=== PATIENT | female | born 1955 | race Caucasian/White ===

== ENCOUNTER 2020-11-18 09:08 | Inpatient (IN) | payer OTHER ==
[~2020-11-18] VITALS: Ht 160 cm; Wt 79.6 kg
[2020-11-18] MEDS: lisinopriL 40 MG TAB PO SCH (09:00)
[2020-11-18 10:54] LABS: BASO % 0.3 % (0.0-1.0); EOS % 0.2 % (0.0-3.0); HEMATOCRIT 40.4 % (36.0-47.0); HEMOGLOBIN 13.7 g/dl (12.0-15.5); LYMPH % 6.1 % (24.0-44.0); MEAN CORPUSCULAR HEMOGLOBIN 32.9 pg (27.0-33.0); MEAN CORPUSCULAR HGB CONC 33.9 g/dl (32.0-36.5); MEAN CORPUSCULAR VOLUME 97.1 fl (80.0-96.0); MONO # 0.7 10^3/uL (0.0-0.8); MONO % 4.3 % (2.0-8.0); NEUTROPHILS # 13.7 10^3/uL (1.5-8.5); NEUTROPHILS % 88.4 % (36.0-66.0); PLATELET COUNT, AUTOMATED 282 10^3/uL (150-450); RED BLOOD COUNT 4.16 10^6/uL (4.00-5.40); WHITE BLOOD COUNT 15.5 10^3/uL (4.0-10.0)
[2020-11-18] MEDS ORDERED: ACET1TAB16 PO (11:03)
[2020-11-18] MEDS ORDERED: ACETAMINOPH W/CODEINE #3 TAB UD PO ONE (11:10)
[2020-11-18 11:24] LABS: ALBUMIN 2.3 GM/DL (3.2-5.2); ALT/SGPT 43 U/L (12-78); BILIRUBIN,TOTAL 0.2 MG/DL (0.2-1.0); BLOOD UREA NITROGEN 74 MG/DL (7-18); CALCIUM LEVEL 8.8 MG/DL (8.8-10.2); CARBON DIOXIDE LEVEL 20 MEQ/L (21-32); CHLORIDE LEVEL 108 MEQ/L (98-107); CK-MB VALUE MASS 12.1 NG/ML (<3.6); CPK CREATINE PHOSPHOKINASE 302 U/L (26-192); CREATININE FOR GFR 1.74 MG/DL (0.55-1.30); GLOMERULAR FILTRATION RATE 31.2 (>45); GLUCOSE, FASTING 106 MG/DL (70-100); MB/CK RELATIVE INDEX 4.01 (< OR =4); POTASSIUM SERUM 4.8 MEQ/L (3.5-5.1); SODIUM LEVEL 138 MEQ/L (136-145); TOTAL PROTEIN 6.6 GM/DL (6.4-8.2); TROPONIN I < 0.02 NG/ML (< 0.10)
[2020-11-18] MEDS ORDERED: NS 1,000 ML IV SCH (12:10)
[2020-11-18] MEDS ORDERED: MAALOX 30 ML SUSP *UDC PO PRN (12:40)
[2020-11-18] MEDS ORDERED: MOM 30ML SUSPENSION UDC PO PRN (12:40)
[2020-11-18 13:03] LABS: RSV AMPLIFICATION NEGATIVE (NEGATIVE)
[2020-11-18] MEDS: NS 1,000 ML IV SCH ×2 (13:13→21:34)
[2020-11-18] MEDS ORDERED: EPIP0.3I2 IM (14:01)
[2020-11-18] MEDS ORDERED: BACL1TAB9 PO (14:01)
[2020-11-18] MEDS ORDERED: CARB1TAB20 PO (14:01)
[2020-11-18] MEDS ORDERED: PRAM1TAB7 PO (14:01)
[2020-11-18] MEDS ORDERED: ROSU20TA5 PO (14:01)
[2020-11-18] MEDS ORDERED: PRAM0.754 PO (14:01)
[2020-11-18] MEDS ORDERED: FAMO20TA PO (14:01)
[2020-11-18] MEDS ORDERED: D31000TA2 PO (14:01)
[2020-11-18] MEDS ORDERED: VALA1TAB5 PO (14:01)
[2020-11-18] MEDS ORDERED: LISI40TA4 PO (14:01)
[2020-11-18] MEDS ORDERED: GABA-282 PO (14:01)
[2020-11-18] MEDS ORDERED: CIPR750T2 PO (14:01)
[2020-11-18] MEDS ORDERED: ASPI-161 PO (14:01)
[2020-11-18] MEDS ORDERED: DICL75TA PO (14:01)
[2020-11-18] MEDS ORDERED: LEXA1TAB2 PO (14:01)
[2020-11-18] MEDS ORDERED: HOME MED LIST COMPLETE! XX SCH (14:05)
[2020-11-18] MEDS ORDERED: ACETAMINOPH W/CODEINE #3 TAB UD PO PRN (15:15)
[2020-11-18] MEDS ORDERED: **SFRHE** EPINEPHrine (EPIPEN) 0.3MG/0.3ML SYRINGE INJ PRN (15:15)
[2020-11-18] MEDS ORDERED: PILL CUTTER 1 EACH XX PRN (16:10)
[2020-11-18] MEDS: BACLOFEN 10 MG TAB PO SCH ×2 (16:26→21:34)
[2020-11-18] MEDS: ACETAMINOPHEN TAB 650MG DOSE (2X325MG) PO PRN (16:27)
[2020-11-18] MEDS ORDERED: GABAPENTIN 300 MG CAP PO ONE (17:35)
[2020-11-18 18:01] LABS: MAGNESIUM LEVEL 2.3 MG/DL (1.8-2.4); URIC ACID 7.5 MG/DL (2.6-6.0)
[2020-11-18 18:02] LABS: INR 1.09; PROTHROMBIN TIME 14.5 SECONDS (12.7-14.5)
[2020-11-18] MEDS: PERCOCET 5MG/325MG TAB PO PRN (18:02)
[2020-11-18 18:03] LABS: PARTIAL THROMBOPLASTIN TIME 21.9 SECONDS (25.9-37.0)
[2020-11-18 18:15] VITALS: BP 103/40
[2020-11-18] MEDS: FAMOTIDINE 20 MG TAB PO SCH (19:12)
[2020-11-18] MEDS: ESCITALOPRAM OXALATE 10 MG TAB (LEXAPRO) PO SCH (19:12)
[2020-11-18] MEDS: valACYclovir HCL 500 MG TAB PO SCH (19:12)
[2020-11-18 21:05] VITALS: BP 101/56
[2020-11-18] MEDS: GABAPENTIN 300 MG CAP PO SCH (21:32)
[2020-11-18] MEDS: PRAMIPEXOLE 1 MG TAB PO SCH (21:33)
[2020-11-18] MEDS: VITAMIN D 1,000 INTERNATIONAL UNITS TABLET PO SCH (21:33)
[2020-11-18] MEDS: carBAMazepine 200MG TABLET PO SCH (21:33)
[2020-11-18] MEDS: ROSUVASTATIN 10 MG TAB (CRESTOR) PO SCH (21:33)
[2020-11-19] VITALS (35 sets, daily range): BP systolic 60–165; BP diastolic 30–85
[2020-11-19] MEDS: NS 1,000 ML IV SCH (05:40)
[2020-11-19] MEDS ORDERED: NS 500 ML IV ONE (06:05)
[2020-11-19] MEDS: ACETAMINOPHEN TAB 650MG DOSE (2X325MG) PO PRN ×2 (06:08→12:36)
[2020-11-19] MEDS: PERCOCET 5MG/325MG TAB PO PRN (06:09)
[2020-11-19 07:26] LABS: HEMATOCRIT 33.7 % (36.0-47.0); MEAN CORPUSCULAR HEMOGLOBIN 32.9 pg (27.0-33.0); MEAN CORPUSCULAR HGB CONC 33.8 g/dl (32.0-36.5); MEAN CORPUSCULAR VOLUME 97.1 fl (80.0-96.0); PLATELET COUNT, AUTOMATED 229 10^3/uL (150-450); RED BLOOD COUNT 3.47 10^6/uL (4.00-5.40); WHITE BLOOD COUNT 12.1 10^3/uL (4.0-10.0)
[2020-11-19 07:46] LABS: HEMOGLOBIN 11.4 g/dl (12.0-15.5)
[2020-11-19 07:51] LABS: CALCIUM LEVEL 7.8 MG/DL (8.8-10.2); CREATININE FOR GFR 1.13 MG/DL (0.55-1.30); GLOMERULAR FILTRATION RATE 51.3 (>45); MAGNESIUM LEVEL 2.3 MG/DL (1.8-2.4); POTASSIUM SERUM 4.4 MEQ/L (3.5-5.1)
[2020-11-19] MEDS: lisinopriL 40 MG TAB PO SCH (09:00)
[2020-11-19] MEDS: ESCITALOPRAM OXALATE 10 MG TAB (LEXAPRO) PO SCH (09:39)
[2020-11-19] MEDS: ASPIRIN 81MG ENTERIC TABLET PO SCH (09:39)
[2020-11-19] MEDS: PRAMIPEXOLE 1 MG TAB PO SCH ×2 (09:40→21:39)
[2020-11-19] MEDS: GABAPENTIN 300 MG CAP PO SCH ×2 (09:40→21:39)
[2020-11-19] MEDS: BACLOFEN 10 MG TAB PO SCH ×3 (09:40→18:07)
[2020-11-19] MEDS: FAMOTIDINE 20 MG TAB PO SCH (09:40)
[2020-11-19] MEDS: VITAMIN D 1,000 INTERNATIONAL UNITS TABLET PO SCH ×2 (09:41→21:38)
[2020-11-19] MEDS: valACYclovir HCL 500 MG TAB PO SCH (09:41)
[2020-11-19] MEDS: carBAMazepine 200MG TABLET PO SCH ×2 (09:41→21:38)
[2020-11-19] MEDS: ENOXAPARIN 30MG/0.3ML SYRINGE (J1650 PER 10MG) SC SCH (09:41)
[2020-11-19] MEDS ORDERED: LR 1,000 ML IV ONE (10:15)
[2020-11-19] MEDS: PIPERACILLIN/TAZOBACTAM SOD 4.5 GM in D5W MINI-BAG PLUS 50 ML IV SCH ×3 (12:13→23:48)
[2020-11-19] MEDS: KCL 20MEQ IN 0.45NS 1000ML 1,000 ML IV SCH (12:13)
[2020-11-19] MEDS ORDERED: VANCOMYCIN HCL 1,000 MG, VIAL MATE ADAPTER 1 EACH in NS 250 ML IV ONE (14:00)
[2020-11-19 17:49] LABS: HEMATOCRIT 36.7 % (36.0-47.0); HEMOGLOBIN 12.3 g/dl (12.0-15.5); MEAN CORPUSCULAR HEMOGLOBIN 33.3 pg (27.0-33.0); MEAN CORPUSCULAR HGB CONC 33.5 g/dl (32.0-36.5); MEAN CORPUSCULAR VOLUME 99.5 fl (80.0-96.0); PLATELET COUNT, AUTOMATED 211 10^3/uL (150-450); RED BLOOD COUNT 3.69 10^6/uL (4.00-5.40); WHITE BLOOD COUNT 13.7 10^3/uL (4.0-10.0)
[2020-11-19 18:03] LABS: BLOOD UREA NITROGEN 34 MG/DL (7-18); CALCIUM LEVEL 7.9 MG/DL (8.8-10.2); CARBON DIOXIDE LEVEL 20 MEQ/L (21-32); CHLORIDE LEVEL 115 MEQ/L (98-107); CREATININE FOR GFR 0.98 MG/DL (0.55-1.30); GLOMERULAR FILTRATION RATE > 60.0 (>45); GLUCOSE, FASTING 85 MG/DL (70-100); POTASSIUM SERUM 4.3 MEQ/L (3.5-5.1); SODIUM LEVEL 143 MEQ/L (136-145)
[2020-11-19] MEDS: VANCOMYCIN HCL 1,000 MG, VIAL MATE ADAPTER 1 EACH in NS 250 ML IV SCH (20:00)
[2020-11-19] MEDS: ROSUVASTATIN 10 MG TAB (CRESTOR) PO SCH (21:39)
[2020-11-20] VITALS (35 sets, daily range): BP systolic 87–157; BP diastolic 52–86
[2020-11-20 06:12] LABS: HEMATOCRIT 35.3 % (36.0-47.0); HEMOGLOBIN 11.8 g/dl (12.0-15.5); MEAN CORPUSCULAR HEMOGLOBIN 33.1 pg (27.0-33.0); MEAN CORPUSCULAR HGB CONC 33.4 g/dl (32.0-36.5); MEAN CORPUSCULAR VOLUME 98.9 fl (80.0-96.0); PLATELET COUNT, AUTOMATED 227 10^3/uL (150-450); RED BLOOD COUNT 3.57 10^6/uL (4.00-5.40); WHITE BLOOD COUNT 13.9 10^3/uL (4.0-10.0)
[2020-11-20] MEDS: PIPERACILLIN/TAZOBACTAM SOD 4.5 GM in D5W MINI-BAG PLUS 50 ML IV SCH (06:29)
[2020-11-20] MEDS: ACETAMINOPHEN TAB 650MG DOSE (2X325MG) PO PRN ×2 (06:33→14:35)
[2020-11-20 06:40] LABS: BLOOD UREA NITROGEN 21 MG/DL (7-18); CALCIUM LEVEL 7.8 MG/DL (8.8-10.2); CARBON DIOXIDE LEVEL 25 MEQ/L (21-32); CHLORIDE LEVEL 112 MEQ/L (98-107); CREATININE FOR GFR 0.88 MG/DL (0.55-1.30); GLOMERULAR FILTRATION RATE > 60.0 (>45); GLUCOSE, FASTING 84 MG/DL (70-100); POTASSIUM SERUM 4.4 MEQ/L (3.5-5.1); SODIUM LEVEL 143 MEQ/L (136-145)
[2020-11-20] MEDS: KCL 20MEQ IN 0.45NS 1000ML 1,000 ML IV SCH (07:35)
[2020-11-20] MEDS: ESCITALOPRAM OXALATE 10 MG TAB (LEXAPRO) PO SCH (08:32)
[2020-11-20] MEDS: carBAMazepine 200MG TABLET PO SCH ×2 (08:32→22:02)
[2020-11-20] MEDS: ASPIRIN 81MG ENTERIC TABLET PO SCH (08:32)
[2020-11-20] MEDS: GABAPENTIN 300 MG CAP PO SCH ×2 (08:33→22:03)
[2020-11-20] MEDS: PRAMIPEXOLE 1 MG TAB PO SCH ×2 (08:33→22:02)
[2020-11-20] MEDS: valACYclovir HCL 500 MG TAB PO SCH (08:33)
[2020-11-20] MEDS: FAMOTIDINE 20 MG TAB PO SCH (08:34)
[2020-11-20] MEDS: VITAMIN D 1,000 INTERNATIONAL UNITS TABLET PO SCH ×2 (08:34→22:03)
[2020-11-20] MEDS: ENOXAPARIN 30MG/0.3ML SYRINGE (J1650 PER 10MG) SC SCH (08:34)
[2020-11-20] MEDS: VANCOMYCIN HCL 1,000 MG, VIAL MATE ADAPTER 1 EACH in NS 250 ML IV SCH (08:34)
[2020-11-20] MEDS ORDERED: ceFAZolin SOD 2 GM in IV 1 EA IV SCH (09:20)
[2020-11-20] MEDS: ceFAZolin SOD 1 GM in D5W MINI-BAG PLUS 50 ML IV SCH ×4 (09:52→18:13)
[2020-11-20] MEDS: LACTOBACILLUS ACIDOPHILUS CAP (BACID) PO SCH (18:56)
[2020-11-20] MEDS: PERCOCET 5MG/325MG TAB PO PRN (22:01)
[2020-11-20] MEDS: ROSUVASTATIN 10 MG TAB (CRESTOR) PO SCH (22:03)
[2020-11-20] MEDS: CEFTAROLINE FOSAMIL 600 MG in D5W MINI-BAG PLUS 50 ML IV SCH (22:14)
[2020-11-21] MEDS: PERCOCET 5MG/325MG TAB PO PRN ×2 (05:44→22:17)
[2020-11-21 05:45] LABS: HEMATOCRIT 33.3 % (36.0-47.0); HEMOGLOBIN 11.3 g/dl (12.0-15.5); MEAN CORPUSCULAR HEMOGLOBIN 32.8 pg (27.0-33.0); MEAN CORPUSCULAR HGB CONC 33.9 g/dl (32.0-36.5); MEAN CORPUSCULAR VOLUME 96.8 fl (80.0-96.0); PLATELET COUNT, AUTOMATED 207 10^3/uL (150-450); RED BLOOD COUNT 3.44 10^6/uL (4.00-5.40); WHITE BLOOD COUNT 12.3 10^3/uL (4.0-10.0)
[2020-11-21 06:00] VITALS: BP 139/82
[2020-11-21 06:15] LABS: BLOOD UREA NITROGEN 10 MG/DL (7-18); CALCIUM LEVEL 7.9 MG/DL (8.8-10.2); CARBON DIOXIDE LEVEL 25 MEQ/L (21-32); CHLORIDE LEVEL 108 MEQ/L (98-107); CREATININE FOR GFR 0.64 MG/DL (0.55-1.30); GLOMERULAR FILTRATION RATE > 60.0 (>45); GLUCOSE, FASTING 93 MG/DL (70-100); POTASSIUM SERUM 3.5 MEQ/L (3.5-5.1); SODIUM LEVEL 140 MEQ/L (136-145)
[2020-11-21] MEDS: PRAMIPEXOLE 1 MG TAB PO SCH ×2 (09:58→20:19)
[2020-11-21] MEDS: LACTOBACILLUS ACIDOPHILUS CAP (BACID) PO SCH ×3 (09:58→18:33)
[2020-11-21] MEDS: FAMOTIDINE 20 MG TAB PO SCH (09:59)
[2020-11-21] MEDS: ASPIRIN 81MG ENTERIC TABLET PO SCH (09:59)
[2020-11-21] MEDS: ESCITALOPRAM OXALATE 10 MG TAB (LEXAPRO) PO SCH (09:59)
[2020-11-21] MEDS: GABAPENTIN 300 MG CAP PO SCH ×2 (09:59→20:19)
[2020-11-21] MEDS: valACYclovir HCL 500 MG TAB PO SCH (09:59)
[2020-11-21] MEDS: VITAMIN D 1,000 INTERNATIONAL UNITS TABLET PO SCH ×2 (09:59→20:19)
[2020-11-21] MEDS: carBAMazepine 200MG TABLET PO SCH ×2 (09:59→20:20)
[2020-11-21] MEDS: ENOXAPARIN 30MG/0.3ML SYRINGE (J1650 PER 10MG) SC SCH (10:00)
[2020-11-21] MEDS: ACETAMINOPHEN TAB 650MG DOSE (2X325MG) PO PRN (10:01)
[2020-11-21] MEDS: CEFTAROLINE FOSAMIL 600 MG in D5W MINI-BAG PLUS 50 ML IV SCH ×2 (10:01→22:16)
[2020-11-21 14:00] VITALS: BP 118/58
[2020-11-21] MEDS: ROSUVASTATIN 10 MG TAB (CRESTOR) PO SCH (20:19)
[2020-11-21 22:00] VITALS: BP 142/86
[2020-11-22 06:00] VITALS: BP 119/65
[2020-11-22 06:23] LABS: HEMATOCRIT 31.5 % (36.0-47.0); HEMOGLOBIN 10.6 g/dl (12.0-15.5); MEAN CORPUSCULAR HEMOGLOBIN 32.3 pg (27.0-33.0); MEAN CORPUSCULAR HGB CONC 33.7 g/dl (32.0-36.5); PLATELET COUNT, AUTOMATED 211 10^3/uL (150-450); RED BLOOD COUNT 3.28 10^6/uL (4.00-5.40); WHITE BLOOD COUNT 9.3 10^3/uL (4.0-10.0)
[2020-11-22 06:55] LABS: BLOOD UREA NITROGEN 9 MG/DL (7-18); CALCIUM LEVEL 8.4 MG/DL (8.8-10.2); CARBON DIOXIDE LEVEL 26 MEQ/L (21-32); CHLORIDE LEVEL 107 MEQ/L (98-107); CREATININE FOR GFR 0.75 MG/DL (0.55-1.30); GLOMERULAR FILTRATION RATE > 60.0 (>45); GLUCOSE, FASTING 116 MG/DL (70-100); POTASSIUM SERUM 2.9 MEQ/L (3.5-5.1); SODIUM LEVEL 141 MEQ/L (136-145)
[2020-11-22] MEDS: ENOXAPARIN 30MG/0.3ML SYRINGE (J1650 PER 10MG) SC SCH (09:51)
[2020-11-22] MEDS: GABAPENTIN 300 MG CAP PO SCH ×2 (09:52→20:08)
[2020-11-22] MEDS: carBAMazepine 200MG TABLET PO SCH ×2 (09:52→20:08)
[2020-11-22] MEDS: PERCOCET 5MG/325MG TAB PO PRN ×2 (09:52→20:07)
[2020-11-22] MEDS: FAMOTIDINE 20 MG TAB PO SCH (09:52)
[2020-11-22] MEDS: VITAMIN D 1,000 INTERNATIONAL UNITS TABLET PO SCH ×2 (09:53→20:08)
[2020-11-22] MEDS: ESCITALOPRAM OXALATE 10 MG TAB (LEXAPRO) PO SCH (09:53)
[2020-11-22] MEDS: PRAMIPEXOLE 1 MG TAB PO SCH ×2 (09:53→20:08)
[2020-11-22] MEDS: ASPIRIN 81MG ENTERIC TABLET PO SCH (09:53)
[2020-11-22] MEDS: valACYclovir HCL 500 MG TAB PO SCH (09:53)
[2020-11-22] MEDS: LACTOBACILLUS ACIDOPHILUS CAP (BACID) PO SCH ×3 (09:55→17:04)
[2020-11-22] MEDS: CEFTAROLINE FOSAMIL 600 MG in D5W MINI-BAG PLUS 50 ML IV SCH ×2 (10:00→23:28)
[2020-11-22 12:00] VITALS: BP 109/54
[2020-11-22] MEDS ORDERED: POTASSIUM CHLORIDE 10MEQ SR TABLET PO ONE (13:25)
[2020-11-22] MEDS: ROSUVASTATIN 10 MG TAB (CRESTOR) PO SCH (20:08)
[2020-11-22] MEDS ORDERED: carisoprodoL 350 MG TAB PO ONE (21:35)
[2020-11-23] MEDS: PERCOCET 5MG/325MG TAB PO PRN ×4 (00:54→21:56)
[2020-11-23 06:00] VITALS: BP 103/53
[2020-11-23 06:19] LABS: HEMATOCRIT 30.2 % (36.0-47.0); HEMOGLOBIN 9.9 g/dl (12.0-15.5); MEAN CORPUSCULAR HEMOGLOBIN 32.1 pg (27.0-33.0); MEAN CORPUSCULAR HGB CONC 32.8 g/dl (32.0-36.5); MEAN CORPUSCULAR VOLUME 98.1 fl (80.0-96.0); PLATELET COUNT, AUTOMATED 199 10^3/uL (150-450); RED BLOOD COUNT 3.08 10^6/uL (4.00-5.40); WHITE BLOOD COUNT 8.5 10^3/uL (4.0-10.0)
[2020-11-23 06:48] LABS: BLOOD UREA NITROGEN 10 MG/DL (7-18); CARBON DIOXIDE LEVEL 28 MEQ/L (21-32); CHLORIDE LEVEL 106 MEQ/L (98-107); CREATININE FOR GFR 0.73 MG/DL (0.55-1.30); GLOMERULAR FILTRATION RATE > 60.0 (>45); GLUCOSE, FASTING 103 MG/DL (70-100); MAGNESIUM LEVEL 2.2 MG/DL (1.8-2.4); POTASSIUM SERUM 3.3 MEQ/L (3.5-5.1); SODIUM LEVEL 141 MEQ/L (136-145)
[2020-11-23] MEDS: PRAMIPEXOLE 1 MG TAB PO SCH ×2 (08:08→21:57)
[2020-11-23] MEDS: ESCITALOPRAM OXALATE 10 MG TAB (LEXAPRO) PO SCH (08:08)
[2020-11-23] MEDS: LACTOBACILLUS ACIDOPHILUS CAP (BACID) PO SCH ×3 (08:08→16:59)
[2020-11-23] MEDS: FAMOTIDINE 20 MG TAB PO SCH (08:08)
[2020-11-23] MEDS: valACYclovir HCL 500 MG TAB PO SCH (08:08)
[2020-11-23] MEDS: ASPIRIN 81MG ENTERIC TABLET PO SCH (08:08)
[2020-11-23] MEDS: GABAPENTIN 300 MG CAP PO SCH ×2 (08:08→21:57)
[2020-11-23] MEDS: VITAMIN D 1,000 INTERNATIONAL UNITS TABLET PO SCH ×2 (08:08→21:57)
[2020-11-23] MEDS: carBAMazepine 200MG TABLET PO SCH ×2 (08:09→21:57)
[2020-11-23] MEDS: POTASSIUM CHLORIDE 10MEQ SR TABLET PO SCH (08:09)
[2020-11-23] MEDS: ENOXAPARIN 30MG/0.3ML SYRINGE (J1650 PER 10MG) SC SCH (08:10)
[2020-11-23] MEDS: CEFTAROLINE FOSAMIL 600 MG in D5W MINI-BAG PLUS 50 ML IV SCH (09:50)
[2020-11-23] MEDS: LevoFLOXacin 750 MG TABLET PO SCH (13:47)
[2020-11-23 14:00] VITALS: BP 123/58
[2020-11-23] MEDS ORDERED: POTASSIUM CHLORIDE 10MEQ SR TABLET PO ONE (17:50)
[2020-11-23] MEDS: DOXYCYCLINE HYCLATE 100MG TABLET PO SCH (21:57)
[2020-11-23] MEDS: ROSUVASTATIN 10 MG TAB (CRESTOR) PO SCH (21:57)
[2020-11-23 22:00] VITALS: BP 93/39
[2020-11-24] MEDS: LevoFLOXacin 750 MG TABLET PO SCH (05:31)
[2020-11-24 05:49] LABS: HEMATOCRIT 29.8 % (36.0-47.0); HEMOGLOBIN 9.8 g/dl (12.0-15.5); MEAN CORPUSCULAR HEMOGLOBIN 32.8 pg (27.0-33.0); MEAN CORPUSCULAR HGB CONC 32.9 g/dl (32.0-36.5); MEAN CORPUSCULAR VOLUME 99.7 fl (80.0-96.0); PLATELET COUNT, AUTOMATED 202 10^3/uL (150-450); RED BLOOD COUNT 2.99 10^6/uL (4.00-5.40); WHITE BLOOD COUNT 6.3 10^3/uL (4.0-10.0)
[2020-11-24 06:00] VITALS: BP 127/56
[2020-11-24 06:27] LABS: BLOOD UREA NITROGEN 11 MG/DL (7-18); CALCIUM LEVEL 7.7 MG/DL (8.8-10.2); CARBON DIOXIDE LEVEL 26 MEQ/L (21-32); CHLORIDE LEVEL 108 MEQ/L (98-107); CREATININE FOR GFR 0.66 MG/DL (0.55-1.30); GLOMERULAR FILTRATION RATE > 60.0 (>45); GLUCOSE, FASTING 93 MG/DL (70-100); POTASSIUM SERUM 4.2 MEQ/L (3.5-5.1); SODIUM LEVEL 141 MEQ/L (136-145)
[2020-11-24] MEDS: PERCOCET 5MG/325MG TAB PO PRN ×4 (06:41→20:49)
[2020-11-24] MEDS: ENOXAPARIN 30MG/0.3ML SYRINGE (J1650 PER 10MG) SC SCH (08:38)
[2020-11-24] MEDS: LACTOBACILLUS ACIDOPHILUS CAP (BACID) PO SCH ×3 (08:39→17:32)
[2020-11-24] MEDS: carBAMazepine 200MG TABLET PO SCH ×2 (08:39→20:46)
[2020-11-24] MEDS: PRAMIPEXOLE 1 MG TAB PO SCH ×2 (08:39→20:43)
[2020-11-24] MEDS: ASPIRIN 81MG ENTERIC TABLET PO SCH (08:39)
[2020-11-24] MEDS: DOXYCYCLINE HYCLATE 100MG TABLET PO SCH ×2 (08:40→20:46)
[2020-11-24] MEDS: POTASSIUM CHLORIDE 10MEQ SR TABLET PO SCH (08:40)
[2020-11-24] MEDS: GABAPENTIN 300 MG CAP PO SCH ×2 (08:40→20:47)
[2020-11-24] MEDS: valACYclovir HCL 500 MG TAB PO SCH (08:40)
[2020-11-24] MEDS: ESCITALOPRAM OXALATE 10 MG TAB (LEXAPRO) PO SCH (08:41)
[2020-11-24] MEDS: VITAMIN D 1,000 INTERNATIONAL UNITS TABLET PO SCH ×2 (08:41→20:47)
[2020-11-24] MEDS: FAMOTIDINE 20 MG TAB PO SCH (08:41)
[2020-11-24 14:00] VITALS: BP 127/58
[2020-11-24] MEDS ORDERED: MORPHINE 2 MG/ML 1ML VIAL (J2270) IV PRN (14:40)
[2020-11-24] MEDS: ROSUVASTATIN 10 MG TAB (CRESTOR) PO SCH (20:46)
[2020-11-24 22:00] VITALS: BP 124/60
[2020-11-25] MEDS: LevoFLOXacin 750 MG TABLET PO SCH (05:49)
[2020-11-25 06:00] VITALS: BP 109/51
[2020-11-25 08:00] VITALS: BP 109/51
[2020-11-25] MEDS: ENOXAPARIN 30MG/0.3ML SYRINGE (J1650 PER 10MG) SC SCH (09:09)
[2020-11-25] MEDS: valACYclovir HCL 500 MG TAB PO SCH (09:09)
[2020-11-25] MEDS: ASPIRIN 81MG ENTERIC TABLET PO SCH (09:10)
[2020-11-25] MEDS: LACTOBACILLUS ACIDOPHILUS CAP (BACID) PO SCH ×3 (09:10→18:05)
[2020-11-25] MEDS: PRAMIPEXOLE 1 MG TAB PO SCH ×2 (09:10→21:56)
[2020-11-25] MEDS: POTASSIUM CHLORIDE 10MEQ SR TABLET PO SCH (09:11)
[2020-11-25] MEDS: DOXYCYCLINE HYCLATE 100MG TABLET PO SCH ×2 (09:11→21:21)
[2020-11-25] MEDS: carBAMazepine 200MG TABLET PO SCH ×2 (09:11→21:20)
[2020-11-25] MEDS: ESCITALOPRAM OXALATE 10 MG TAB (LEXAPRO) PO SCH (09:11)
[2020-11-25] MEDS: GABAPENTIN 300 MG CAP PO SCH ×2 (09:11→21:21)
[2020-11-25] MEDS: VITAMIN D 1,000 INTERNATIONAL UNITS TABLET PO SCH ×2 (09:12→21:21)
[2020-11-25] MEDS: FAMOTIDINE 20 MG TAB PO SCH (09:12)
[2020-11-25 09:20] LABS: BASO % 0.4 % (0.0-1.0); EOS # 0.1 10^3/uL (0.0-0.5); EOS % 1.4 % (0.0-3.0); HEMATOCRIT 32.6 % (36.0-47.0); HEMOGLOBIN 10.6 g/dl (12.0-15.5); LYMPH # 1.1 10^3/uL (1.5-5.0); LYMPH % 11.9 % (24.0-44.0); MEAN CORPUSCULAR HEMOGLOBIN 32.1 pg (27.0-33.0); MEAN CORPUSCULAR HGB CONC 32.5 g/dl (32.0-36.5); MEAN CORPUSCULAR VOLUME 98.8 fl (80.0-96.0); MONO # 0.3 10^3/uL (0.0-0.8); MONO % 3.1 % (2.0-8.0); NEUTROPHILS # 7.4 10^3/uL (1.5-8.5); NEUTROPHILS % 82.4 % (36.0-66.0); PLATELET COUNT, AUTOMATED 259 10^3/uL (150-450)
[2020-11-25] MEDS: PERCOCET 5MG/325MG TAB PO PRN ×2 (09:24→21:19)
[2020-11-25 10:00] LABS: ALBUMIN 1.6 GM/DL (3.2-5.2); ALT/SGPT 30 U/L (12-78); BILIRUBIN,TOTAL < 0.1 MG/DL (0.2-1.0); BLOOD UREA NITROGEN 21 MG/DL (7-18); CALCIUM LEVEL 8.5 MG/DL (8.8-10.2); CARBON DIOXIDE LEVEL 27 MEQ/L (21-32); CHLORIDE LEVEL 104 MEQ/L (98-107); CREATININE FOR GFR 0.75 MG/DL (0.55-1.30); GLOMERULAR FILTRATION RATE > 60.0 (>45); GLUCOSE, FASTING 133 MG/DL (70-100); MAGNESIUM LEVEL 2.2 MG/DL (1.8-2.4); POTASSIUM SERUM 4.1 MEQ/L (3.5-5.1); SODIUM LEVEL 140 MEQ/L (136-145)
[2020-11-25 14:00] VITALS: BP 108/53
[2020-11-25] MEDS: ROSUVASTATIN 10 MG TAB (CRESTOR) PO SCH (21:20)
[2020-11-26] MEDS: LevoFLOXacin 750 MG TABLET PO SCH (05:30)
[2020-11-26 06:00] VITALS: BP 120/56
[2020-11-26 06:31] LABS: HEMATOCRIT 32.4 % (36.0-47.0); HEMOGLOBIN 10.6 g/dl (12.0-15.5); MEAN CORPUSCULAR HEMOGLOBIN 32.6 pg (27.0-33.0); MEAN CORPUSCULAR HGB CONC 32.7 g/dl (32.0-36.5); MEAN CORPUSCULAR VOLUME 99.7 fl (80.0-96.0); PLATELET COUNT, AUTOMATED 259 10^3/uL (150-450); RED BLOOD COUNT 3.25 10^6/uL (4.00-5.40); WHITE BLOOD COUNT 7.7 10^3/uL (4.0-10.0)
[2020-11-26] MEDS: ASPIRIN 81MG ENTERIC TABLET PO SCH (08:18)
[2020-11-26] MEDS: LACTOBACILLUS ACIDOPHILUS CAP (BACID) PO SCH ×2 (08:18→12:59)
[2020-11-26] MEDS: valACYclovir HCL 500 MG TAB PO SCH (08:18)
[2020-11-26] MEDS: VITAMIN D 1,000 INTERNATIONAL UNITS TABLET PO SCH (08:18)
[2020-11-26] MEDS: GABAPENTIN 300 MG CAP PO SCH (08:18)
[2020-11-26] MEDS: FAMOTIDINE 20 MG TAB PO SCH (08:19)
[2020-11-26] MEDS: PRAMIPEXOLE 1 MG TAB PO SCH (08:19)
[2020-11-26] MEDS: ENOXAPARIN 30MG/0.3ML SYRINGE (J1650 PER 10MG) SC SCH (08:19)
[2020-11-26] MEDS: ESCITALOPRAM OXALATE 10 MG TAB (LEXAPRO) PO SCH (08:19)
[2020-11-26] MEDS: POTASSIUM CHLORIDE 10MEQ SR TABLET PO SCH (08:19)
[2020-11-26] MEDS: carBAMazepine 200MG TABLET PO SCH (08:19)
[2020-11-26] MEDS: DOXYCYCLINE HYCLATE 100MG TABLET PO SCH (08:19)
[2020-11-26] MEDS: PERCOCET 5MG/325MG TAB PO PRN (12:59)
[2020-11-26] MEDS ORDERED: ACET1TAB55 PO (13:13)
[2020-11-26] MEDS ORDERED: DOXY100T PO (13:13)
[2020-11-26] MEDS ORDERED: LEVO750T13 PO (13:13)
[2020-11-26] MEDS ORDERED: LISI10TA22 PO (13:13)
[2020-11-26] MEDS ORDERED: PERCOCET PO (13:13)
[2020-11-26] MEDS ORDERED: K-TA10TA2 PO (13:13)
[2020-11-26] MEDS ORDERED: PROBCAP14 PO (13:56)
[2020-11-26 14:00] VITALS: BP 112/57
== END 2020-11-26 16:41 | disposition home health service (06) | DRG 872 ==
LOC: M ED 09:08 → M ED INP 09:09 → ENRESERV 17:20 → M MS5PR 18:20 → OBSVTOIN 11-19 10:33 → M PCU 11-19 16:22 → M MSPAV 11-20 13:54
PROVIDERS: ADMIT Internal Medicine Nephrology; ATTEND Family Medicine
DX: A41.9 Sepsis, unspecified organism (principal); N17.9 Acute kidney failure, unspecified; L03.116 Cellulitis of left lower limb; L03.115 Cellulitis of right lower limb; L97.218 Non-pressure chronic ulcer of right calf with other specified severity; L97.228 Non-pressure chronic ulcer of left calf with other specified severity; G35 Multiple sclerosis; G89.29 Other chronic pain; Z74.09 Other reduced mobility; I10 Essential (primary) hypertension; Z90.49 Acquired absence of other specified parts of digestive tract; K21.9 Gastro-esophageal reflux disease without esophagitis; F32.9 Major depressive disorder, single episode, unspecified; E78.5 Hyperlipidemia, unspecified; Z79.82 Long term (current) use of aspirin; Z79.899 Other long term (current) drug therapy; Z88.1 Allergy status to other antibiotic agents; Z91.030 Bee allergy status; Z20.822 Contact with and (suspected) exposure to COVID-19; E87.6 Hypokalemia; G47.10 Hypersomnia, unspecified; E66.9 Obesity, unspecified; L97.529 Non-pressure chronic ulcer of other part of left foot with unspecified severity; Z68.31 Body mass index [BMI] 31.0-31.9, adult

== ENCOUNTER → 2021-04-18 | Outpatient (CLI) | payer OTHER ==
[~2021-04-18] MED LIST: ACET1TAB16 PO; ACET1TAB55 PO; ASPI-161 PO; BACL1TAB9 PO; CARB1TAB20 PO; CIPR750T2 PO; D31000TA2 PO; DICL75TA PO; DOXY100T PO; EPIP0.3I2 IM; FAMO20TA PO; GABA-282 PO; K-TA10TA2 PO; LEVO750T13 PO; LEXA1TAB2 PO; LISI10TA22 PO; LISI40TA4 PO; PERCOCET PO; PRAM0.754 PO; PRAM1TAB7 PO; PROBCAP14 PO; ROSU20TA5 PO; VALA1TAB5 PO
== END ==
LOC: M RAD 14:18
PROVIDERS: ATTEND Podiatrist Foot & Ankle Surgery
DX: I70.203 Unspecified atherosclerosis of native arteries of extremities, bilateral legs (principal)

== ENCOUNTER 2021-05-09 05:45 | Emergency (ER) | payer MEDICARE, OTHER ==
[~2021-05-09] VITALS: Ht 160 cm; Wt 77.0 kg
[~2021-05-09 05:45] MED LIST changes: -D31000TA2 PO; +VITA100093 PO
[2021-05-09 06:45] VITALS: BP 164/70
[2021-05-09 07:47] LABS: BASO # 0.1 10^3/uL (0.0-0.2); BASO % 0.6 % (0.0-1.0); EOS # 0.1 10^3/uL (0.0-0.5); EOS % 1.6 % (0.0-3.0); HEMATOCRIT 42.2 % (36.0-47.0); HEMOGLOBIN 13.8 g/dl (12.0-15.5); LYMPH # 1.7 10^3/uL (1.5-5.0); LYMPH % 20.3 % (24.0-44.0); MEAN CORPUSCULAR HEMOGLOBIN 32.5 pg (27.0-33.0); MEAN CORPUSCULAR HGB CONC 32.7 g/dl (32.0-36.5); MEAN CORPUSCULAR VOLUME 99.3 fl (80.0-96.0); MONO # 0.6 10^3/uL (0.0-0.8); MONO % 7.1 % (2.0-8.0); NEUTROPHILS # 5.8 10^3/uL (1.5-8.5); PLATELET COUNT, AUTOMATED 185 10^3/uL (150-450); RED BLOOD COUNT 4.25 10^6/uL (4.00-5.40); WHITE BLOOD COUNT 8.2 10^3/uL (4.0-10.0)
[2021-05-09 07:59] LABS: BLOOD UREA NITROGEN 30 MG/DL (7-18); CALCIUM LEVEL 8.6 MG/DL (8.8-10.2); CARBON DIOXIDE LEVEL 30 MEQ/L (21-32); CHLORIDE LEVEL 114 MEQ/L (98-107); GLOMERULAR FILTRATION RATE > 60.0 (>45); GLUCOSE, FASTING 74 MG/DL (70-100); POTASSIUM SERUM 4.9 MEQ/L (3.5-5.1); SODIUM LEVEL 145 MEQ/L (136-145)
[2021-05-09] MEDS ORDERED: NS 500 ML IV ONE (08:05)
[2021-05-09 08:24] LABS: BILIRUBIN, URINE MANUAL NEGATIVE (NEGATIVE); GLUCOSE, URINE (UA) MANUAL NEGATIVE (NEGATIVE); KETONE, URINE MANUAL NEGATIVE (NEGATIVE); UROBILINOGEN, URINE MANUAL NORMAL (NORMAL)
[2021-05-09 08:36] LABS: SQUAMOUS EPITHELIAL CELL URINE MOD AMOUNT /hpf (SMALL AMT)
[2021-05-09 08:37] LABS: BACTERIA, URINE SMALL AMOUNT; HYALINE CAST, URINE 0-1 /lpf (0-1); MUCUS, URINE SMALL AMOUNT (NEGATIVE)
[2021-05-09 09:26] VITALS: BP 133/75
[2021-05-09] MEDS ORDERED: PRAMIPEXOLE 1 MG TAB PO ONE (09:30)
== END 2021-05-09 12:01 | disposition home or self-care (01) ==
LOC: M ED 05:45
DX: R53.1 Weakness (principal); E86.0 Dehydration; R00.1 Bradycardia, unspecified; G35 Multiple sclerosis; G82.50 Quadriplegia, unspecified; Z79.82 Long term (current) use of aspirin; Z79.899 Other long term (current) drug therapy; Z88.0 Allergy status to penicillin; Z88.1 Allergy status to other antibiotic agents; Z88.2 Allergy status to sulfonamides; Z91.030 Bee allergy status

== ENCOUNTER → 2022-05-04 | Outpatient (CLI) | payer MEDICARE, OTHER ==
[~2022-05-04] MED LIST changes: -ACET1TAB16 PO; +ACET300T48 PO; +LEVO1TAB40 PO; -LEVO750T13 PO
== END ==
LOC: M RAD 11:47
DX: I82.551 Chronic embolism and thrombosis of right peroneal vein (principal); I82.431 Acute embolism and thrombosis of right popliteal vein

== ENCOUNTER → 2022-07-06 | Outpatient (CLI) | payer MEDICARE, OTHER | LOC: M WHC 14:23 | DX: Z12.31 Encounter for screening mammogram for malignant neoplasm of breast (principal) ==

== ENCOUNTER → 2023-07-10 | Outpatient (CLI) | payer OTHER, MEDICARE ==
[~2023-07-10] MED LIST changes: -ASPI-161 PO; +ASPI-615 PO; -K-TA10TA2 PO; +POTA-165 PO; -ROSU20TA5 PO; +ROSU20TA61 PO
== END ==
LOC: M WHC 10:54
PROVIDERS: ATTEND Physician Assistant
DX: Z12.31 Encounter for screening mammogram for malignant neoplasm of breast (principal); R92.323 Mammographic fibroglandular density, bilateral breasts

== ENCOUNTER 2023-10-23 15:13 | Inpatient (IN) | payer OTHER, MEDICARE ==
[~2023-10-23] VITALS: Ht 154.9 cm; Wt 91.1 kg
[2023-10-23] MEDS: LIDOCAINE 2% 5ML JELLY UROJET TOP ONE (15:30)
[2023-10-23] MEDS: NS 2,700 ML in IV 1 EA IV ONE (16:13)
[2023-10-23] MEDS: NOREPINEPHRINE 4MG IN D5 250ML 4 MG in IV 1 EA IV SCH ×2 (16:16→17:55)
[2023-10-23] MEDS ORDERED: ISOVUE-370 76% 100ML VIAL As Ordered ONE (16:25)
[2023-10-23 16:32] LABS: HEMATOCRIT 37.7 % (36.0-47.0); HEMOGLOBIN 11.6 g/dl (12.0-15.5); MEAN CORPUSCULAR HGB CONC 30.8 g/dl (32.0-36.5); MEAN CORPUSCULAR VOLUME 87.9 fl (80.0-96.0); PLATELET COUNT, AUTOMATED 178 10^3/uL (150-450); RED BLOOD COUNT 4.29 10^6/uL (4.00-5.40); WHITE BLOOD COUNT 16.3 10^3/uL (4.0-10.0)
[2023-10-23] MEDS: HYDROCORTISONE 100MG/2ML VIAL IV ONE (16:39)
[2023-10-23] MEDS: LevoFLOXacin IV 750 MG in IV 1 EA IV ONE (16:39)
[2023-10-23 16:43] LABS: INR 2.19; PARTIAL THROMBOPLASTIN TIME 40.2 SECONDS (24.8-34.2); PROTHROMBIN TIME 23.5 SECONDS (12.5-14.5)
[2023-10-23 16:50] LABS: APPEARANCE, URINE CLOUDY (CLEAR); BACTERIA, URINE AUTO 1+ (NEGATIVE); BILIRUBIN, URINE AUTO 1+ (NEGATIVE); BLOOD, URINE BLOOD 2+ (NEGATIVE); COLOR, URINE AMBER (YELLOW); GLUCOSE, URINE (UA) AUTO 1+ mg/dL (NEGATIVE); KETONE, URINE AUTO NEGATIVE (NEGATIVE); LEUKOCYTE ESTERASE, URINE AUTO TRACE (NEGATIVE); MUCUS, URINE SMALL (NEGATIVE); NITRITE, URINE AUTO NEGATIVE (NEGATIVE); PROTEIN, URINE AUTO 2+ mg/dL (NEGATIVE); RBC, URINE AUTO 36 /HPF (0-3); SPECIFIC GRAVITY URINE AUTO 1.026 (1.002-1.035); SQUAMOUS EPITHELIAL CELL UR AU 7 /HPF (0-6); UROBILINOGEN, URINE AUTO 0.2 mg/dL (0.0-2.0); WBC, URINE AUTO 10 /HPF (0-3)
[2023-10-23] MEDS ORDERED: VANCOMYCIN HCL 1,750 MG in NS 250 ML IV ONE (16:50)
[2023-10-23 16:54] LABS: C REACTIVE PROTEIN QUANTITATIV 16.6 MG/DL (<1.0); CK-MB VALUE MASS 3.7 NG/ML (<3.6)
[2023-10-23 16:56] LABS: ABG BASE EXCESS -5.6 (-2.0-2.0); ABG HCO3 17.4 MMOL/L (22.0-26.0); ABG O2 SATURATION 98.1 % (95.0-99.0); ABG PARTIAL PRESSURE CO2 26.5 mmHg (35.0-45.0); ABG PARTIAL PRESSURE O2 114.2 mmHg (75.0-100.0); ABG STANDARD HCO3 19.9 MMOL/L. (22.0-26.0); ABG TOTAL CO2 18.2 MMOL/L (23.0-31.0); ABG pH (ARTERIAL) 7.436 UNITS (7.350-7.450)
[2023-10-23 16:56] LABS: ALBUMIN 2.7 G/DL (3.2-5.2); BILIRUBIN,DIRECT 0.2 MG/DL (<0.4); BILIRUBIN,TOTAL 0.5 MG/DL (0.3-1.2); CALCIUM LEVEL 8.1 MG/DL (8.3-10.6); CREATININE FOR GFR 1.32 MG/DL (0.55-1.30); GLOMERULAR FILTRATION RATE 42.5 (>45); TOTAL PROTEIN 6.6 G/DL (5.7-8.2)
[2023-10-23 17:02] LABS: PROCALCITONIN 21.99 ng/ml
[2023-10-23 17:06] LABS: MB/CK RELATIVE INDEX 1.27 (< OR =4)
[2023-10-23 17:31] LABS: ANISOCYTOSIS 2+; BASOPHILS 1 % (0-1); LYMPHOCYTES 5 % (16-44); MONOCYTES 1 % (0-5); NEUTROPHILS 87 % (28-66); PLATELET ESTIMATE NORMAL (NORMAL)
[2023-10-23] MEDS ORDERED: HEPARIN SOD (PORCINE) 5000UNITS/ML 1ML VIAL/SYRINGE SC SCH (17:55)
[2023-10-23] MEDS: VANCOMYCIN HCL 1,000 MG, VIAL MATE ADAPTER 1 EACH in D5W 250 ML IV ONE (18:08)
[2023-10-23 18:15] LABS: MB/CK RELATIVE INDEX 1.58 (< OR =4)
[2023-10-23] MEDS ORDERED: VANCOMYCIN HCL 1,000 MG, VIAL MATE ADAPTER 1 EACH in D5W 250 ML IV SCH (18:30)
[2023-10-23] MEDS ORDERED: LR 1,000 ML IV SCH (18:40)
[2023-10-23] MEDS: LR 1,000 ML IV SCH (18:45)
[2023-10-23 19:13] LABS: CK-MB VALUE MASS 3.7 NG/ML (<3.6)
[2023-10-23 19:18] LABS: MB/CK RELATIVE INDEX 1.53 (< OR =4)
[2023-10-23] MEDS: VANCOMYCIN HCL 750 MG, VIAL MATE ADAPTER 1 EACH in D5W 250 ML IV ONE (19:23)
[2023-10-23] MEDS ORDERED: REFR0.5D8 OU (20:49)
[2023-10-23] MEDS ORDERED: ACET-910 PO (20:49)
[2023-10-23] MEDS ORDERED: CETI-24 PO (20:49)
[2023-10-23] MEDS ORDERED: DOCU100C17 PO (20:49)
[2023-10-23] MEDS ORDERED: SERT25TA21 PO (20:49)
[2023-10-23] MEDS ORDERED: PRAM1.5T2 PO (20:49)
[2023-10-23] MEDS ORDERED: BACL1TAB8 PO (20:49)
[2023-10-23] MEDS ORDERED: DOXY100C3 PO (20:49)
[2023-10-23] MEDS ORDERED: CALCD50TA PO (20:49)
[2023-10-23] MEDS ORDERED: OMEP-173 PO (20:49)
[2023-10-23] MEDS ORDERED: ROSU10TA61 PO (20:49)
[2023-10-23] MEDS ORDERED: XARE10TA PO (20:49)
[2023-10-23] MEDS ORDERED: LISI10TA22 PO (20:49)
[2023-10-23] MEDS ORDERED: HOME MED LIST COMPLETE! XX SCH (21:10)
[2023-10-23 22:45] VITALS: BP 93/61; TEMP 98.3; O2SAT 86
[2023-10-23] MEDS ORDERED: PILL CUTTER 1 EACH XX PRN (22:55)
[2023-10-23 23:00] VITALS: BP 152/74; O2SAT 100
[2023-10-23] MEDS: BACLOFEN 10 MG TAB PO SCH ×2 (23:00→23:11)
[2023-10-23] MEDS: ROSUVASTATIN 10 MG TAB (CRESTOR) PO SCH (23:11)
[2023-10-23] MEDS: GABAPENTIN 300 MG CAP PO SCH (23:11)
[2023-10-23 23:15] VITALS: BP 121/59; O2SAT 100
[2023-10-23 23:30] VITALS: BP 115/77; O2SAT 100
[2023-10-23] MEDS ORDERED: PERCOCET 5MG/325MG TAB PO PRN (23:35)
[2023-10-23 23:45] VITALS: BP 129/74; O2SAT 100
[2023-10-23] MEDS: PRAMIPEXOLE 1 MG TAB PO SCH (23:56)
[2023-10-23] MEDS: PERCOCET 5MG/325MG TAB PO PRN (23:58)
[2023-10-24] VITALS (86 sets, daily range): BP systolic 76–133; BP diastolic 40–74; TEMP 97.5–100.4; O2SAT 86–100
[2023-10-24 07:07] LABS: ALKALINE PHOSPHATASE 78 U/L (46-116); ALT/SGPT 18 U/L (7.0-40); AST/SGOT 20 U/L (<34); BILIRUBIN,TOTAL 0.2 MG/DL (0.3-1.2); BLOOD UREA NITROGEN 19 MG/DL (9-23); CALCIUM LEVEL 7.6 MG/DL (8.3-10.6); CARBON DIOXIDE LEVEL 22 MMOL/L (20-31); CHLORIDE LEVEL 111 MMOL/L (98-107); CREATININE FOR GFR 0.84 MG/DL (0.55-1.30); GLOMERULAR FILTRATION RATE > 60.0 (>45); GLUCOSE, FASTING 131 MG/DL (74-106); MAGNESIUM LEVEL 1.5 MG/DL (1.8-2.4); POTASSIUM SERUM 3.7 MMOL/L (3.5-5.1); SODIUM LEVEL 138 MMOL/L (136-145); TOTAL PROTEIN 5.4 G/DL (5.7-8.2)
[2023-10-24 07:09] LABS: BASO % 0.3 % (0.0-1.0); HEMATOCRIT 34.2 % (36.0-47.0); HEMOGLOBIN 10.5 g/dl (12.0-15.5); LYMPH # 0.6 10^3/uL (1.5-5.0); LYMPH % 3.9 % (24.0-44.0); MEAN CORPUSCULAR HEMOGLOBIN 27.2 pg (27.0-33.0); MEAN CORPUSCULAR HGB CONC 30.7 g/dl (32.0-36.5); MEAN CORPUSCULAR VOLUME 88.6 fl (80.0-96.0); MONO # 0.5 10^3/uL (0.0-0.8); MONO % 3.3 % (2.0-8.0); NEUTROPHILS # 13.3 10^3/uL (1.5-8.5); NEUTROPHILS % 91.2 % (36.0-66.0); PLATELET COUNT, AUTOMATED 178 10^3/uL (150-450); RED BLOOD COUNT 3.86 10^6/uL (4.00-5.40); WHITE BLOOD COUNT 14.6 10^3/uL (4.0-10.0)
[2023-10-24 08:42] LABS: PHOSPHORUS LEVEL 2.8 MG/DL (2.4-5.1)
[2023-10-24] MEDS: valACYclovir HCL 500 MG TAB PO SCH (08:50)
[2023-10-24] MEDS: PANTOPRAZOLE 40MG VIAL IV SCH (08:50)
[2023-10-24] MEDS: SERTRALINE HCL 25 MG TABLET PO SCH (08:51)
[2023-10-24] MEDS: OMEPRAZOLE 20MG CAP PO SCH (08:51)
[2023-10-24] MEDS: PRAMIPEXOLE 1 MG TAB PO SCH (08:51)
[2023-10-24] MEDS: RIVAROXABAN 10MG TAB (XARELTO) PO SCH (08:51)
[2023-10-24] MEDS: DOCUSATE SODIUM 100MG CAPSULE PO SCH (08:52)
[2023-10-24] MEDS: CETIRIZINE (ZyrTEC) 10 MG TAB PO SCH (08:52)
[2023-10-24] MEDS: LIDOCAINE 5% (LIDODERM) PATCH TD SCH (08:53)
[2023-10-24] MEDS: VANCOMYCIN HCL 1,000 MG, VIAL MATE ADAPTER 1 EACH in D5W 250 ML IV SCH (09:57)
[2023-10-24] MEDS: LR 1,000 ML IV ONE ×2 (09:58→11:18)
[2023-10-24] MEDS: LevoFLOXacin 750 MG TABLET PO SCH (11:18)
[2023-10-24] MEDS ORDERED: VANCOMYCIN HCL 750 MG, VIAL MATE ADAPTER 1 EACH in D5W 250 ML IV SCH (12:00)
[2023-10-24] MEDS ORDERED: VANCOMYCIN HCL 500 MG in D5W MINI-BAG PLUS 100 ML IV SCH (13:00)
[2023-10-24] MEDS: MAG SULF 1GM/100ML (MAG RUN) 1 GM in IV 1 EA IV ONE (15:35)
[2023-10-25] VITALS (40 sets, daily range): BP systolic 80–140; BP diastolic 52–86; TEMP 97.2–98.8; O2SAT 94–99
[2023-10-25 08:13] LABS: BASO % 0.2 % (0.0-1.0); EOS % 0.3 % (0.0-3.0); HEMATOCRIT 27.7 % (36.0-47.0); HEMOGLOBIN 8.8 g/dl (12.0-15.5); LYMPH # 0.6 10^3/uL (1.5-5.0); LYMPH % 6.6 % (24.0-44.0); MEAN CORPUSCULAR HEMOGLOBIN 27.4 pg (27.0-33.0); MEAN CORPUSCULAR HGB CONC 31.8 g/dl (32.0-36.5); MEAN CORPUSCULAR VOLUME 86.3 fl (80.0-96.0); MONO # 0.4 10^3/uL (0.0-0.8); MONO % 4.3 % (2.0-8.0); NEUTROPHILS # 8.5 10^3/uL (1.5-8.5); NEUTROPHILS % 87.5 % (36.0-66.0); PLATELET COUNT, AUTOMATED 146 10^3/uL (150-450); RED BLOOD COUNT 3.21 10^6/uL (4.00-5.40); WHITE BLOOD COUNT 9.7 10^3/uL (4.0-10.0)
[2023-10-25 08:38] LABS: ALBUMIN 1.7 G/DL (3.2-5.2); ALKALINE PHOSPHATASE 68 U/L (46-116); ALT/SGPT 17 U/L (7.0-40); AST/SGOT 14 U/L (<34); BILIRUBIN,TOTAL 0.2 MG/DL (0.3-1.2); BLOOD UREA NITROGEN 12 MG/DL (9-23); CALCIUM LEVEL 7.4 MG/DL (8.3-10.6); CARBON DIOXIDE LEVEL 26 MMOL/L (20-31); CHLORIDE LEVEL 114 MMOL/L (98-107); CREATININE FOR GFR 0.68 MG/DL (0.55-1.30); GLOMERULAR FILTRATION RATE > 60.0 (>45); GLUCOSE, FASTING 114 MG/DL (74-106); POTASSIUM SERUM 3.4 MMOL/L (3.5-5.1); SODIUM LEVEL 143 MMOL/L (136-145); TOTAL PROTEIN 4.7 G/DL (5.7-8.2)
[2023-10-25] MEDS: NYSTATIN 100,000 UNITS/GM TOPICAL PWD 15GM TOP SCH (09:00)
[2023-10-25] MEDS: DICLOFENAC 75 MG PO SCH (12:48)
[2023-10-25] MEDS: POTASSIUM CHLORIDE 10MEQ SR TABLET PO ONE (15:25)
[2023-10-25] MEDS: MAG SULF 1GM/100ML (MAG RUN) 1 GM in IV 1 EA IV ONE (15:27)
[2023-10-25] MEDS ORDERED: LevoFLOXacin IV 750 MG in IV 1 EA IV SCH (16:00)
[2023-10-26] VITALS (7 sets, daily range): BP systolic 93–145; BP diastolic 54–91; TEMP 97.1–98.6; O2SAT 91–97
[2023-10-26 04:31] LABS: BASO % 0.4 % (0.0-1.0); EOS # 0.1 10^3/uL (0.0-0.5); EOS % 0.9 % (0.0-3.0); HEMATOCRIT 31.5 % (36.0-47.0); HEMOGLOBIN 9.6 g/dl (12.0-15.5); LYMPH # 1.2 10^3/uL (1.5-5.0); LYMPH % 11.4 % (24.0-44.0); MEAN CORPUSCULAR HEMOGLOBIN 26.8 pg (27.0-33.0); MEAN CORPUSCULAR HGB CONC 30.5 g/dl (32.0-36.5); MONO # 0.4 10^3/uL (0.0-0.8); MONO % 3.5 % (2.0-8.0); NEUTROPHILS # 8.5 10^3/uL (1.5-8.5); NEUTROPHILS % 82.8 % (36.0-66.0); PLATELET COUNT, AUTOMATED 154 10^3/uL (150-450); RED BLOOD COUNT 3.58 10^6/uL (4.00-5.40); WHITE BLOOD COUNT 10.2 10^3/uL (4.0-10.0)
[2023-10-26 05:00] LABS: ALKALINE PHOSPHATASE 85 U/L (46-116); ALT/SGPT 19 U/L (7.0-40); AST/SGOT 18 U/L (<34); BILIRUBIN,TOTAL 0.3 MG/DL (0.3-1.2); BLOOD UREA NITROGEN 16 MG/DL (9-23); CALCIUM LEVEL 7.8 MG/DL (8.3-10.6); CARBON DIOXIDE LEVEL 26 MMOL/L (20-31); CHLORIDE LEVEL 114 MMOL/L (98-107); CREATININE FOR GFR 0.81 MG/DL (0.55-1.30); GLOMERULAR FILTRATION RATE > 60.0 (>45); GLUCOSE, FASTING 86 MG/DL (74-106); POTASSIUM SERUM 3.7 MMOL/L (3.5-5.1); SODIUM LEVEL 142 MMOL/L (136-145); TOTAL PROTEIN 5.5 G/DL (5.7-8.2)
[2023-10-27 03:43] VITALS: BP 89/55; TEMP 98.4; O2SAT 90
[2023-10-27 04:32] VITALS: BP 100/60
[2023-10-27 07:04] LABS: BASO % 0.3 % (0.0-1.0); EOS # 0.1 10^3/uL (0.0-0.5); HEMATOCRIT 27.5 % (36.0-47.0); HEMOGLOBIN 8.6 g/dl (12.0-15.5); LYMPH # 0.9 10^3/uL (1.5-5.0); LYMPH % 9.3 % (24.0-44.0); MEAN CORPUSCULAR HEMOGLOBIN 27.4 pg (27.0-33.0); MEAN CORPUSCULAR HGB CONC 31.3 g/dl (32.0-36.5); MEAN CORPUSCULAR VOLUME 87.6 fl (80.0-96.0); MONO # 0.6 10^3/uL (0.0-0.8); MONO % 6.4 % (2.0-8.0); NEUTROPHILS # 8.3 10^3/uL (1.5-8.5); NEUTROPHILS % 82.1 % (36.0-66.0); PLATELET COUNT, AUTOMATED 143 10^3/uL (150-450); RED BLOOD COUNT 3.14 10^6/uL (4.00-5.40)
[2023-10-27 07:22] LABS: ALBUMIN 1.6 G/DL (3.2-5.2); ALKALINE PHOSPHATASE 78 U/L (46-116); ALT/SGPT 18 U/L (7.0-40); AST/SGOT 15 U/L (<34); BILIRUBIN,TOTAL 0.4 MG/DL (0.3-1.2); BLOOD UREA NITROGEN 16 MG/DL (9-23); CALCIUM LEVEL 7.6 MG/DL (8.3-10.6); CARBON DIOXIDE LEVEL 28 MMOL/L (20-31); CHLORIDE LEVEL 112 MMOL/L (98-107); CREATININE FOR GFR 0.92 MG/DL (0.55-1.30); GLOMERULAR FILTRATION RATE > 60.0 (>45); GLUCOSE, FASTING 105 MG/DL (74-106); POTASSIUM SERUM 3.4 MMOL/L (3.5-5.1); SODIUM LEVEL 143 MMOL/L (136-145); TOTAL PROTEIN 4.8 G/DL (5.7-8.2)
[2023-10-27 11:49] VITALS: BP 116/60; TEMP 98.4; O2SAT 94
[2023-10-27] MEDS: ACETAMINOPHEN TAB 650MG DOSE (2X325MG) PO PRN (17:51)
[2023-10-27 20:00] VITALS: BP 115/59; TEMP 98.1; O2SAT 97
[2023-10-28 04:40] VITALS: BP 111/62; TEMP 97.7; O2SAT 94
[2023-10-28 07:09] LABS: HEMATOCRIT 27.5 % (36.0-47.0); HEMOGLOBIN 8.6 g/dl (12.0-15.5); MEAN CORPUSCULAR HGB CONC 31.3 g/dl (32.0-36.5); MEAN CORPUSCULAR VOLUME 86.2 fl (80.0-96.0); PLATELET COUNT, AUTOMATED 160 10^3/uL (150-450); RED BLOOD COUNT 3.19 10^6/uL (4.00-5.40); WHITE BLOOD COUNT 8.9 10^3/uL (4.0-10.0)
[2023-10-28 07:30] LABS: ALBUMIN 1.5 G/DL (3.2-5.2); ALKALINE PHOSPHATASE 83 U/L (46-116); ALT/SGPT 13 U/L (7.0-40); AST/SGOT 10 U/L (<34); BILIRUBIN,TOTAL 0.3 MG/DL (0.3-1.2); BLOOD UREA NITROGEN 14 MG/DL (9-23); CALCIUM LEVEL 7.7 MG/DL (8.3-10.6); CARBON DIOXIDE LEVEL 29 MMOL/L (20-31); CHLORIDE LEVEL 112 MMOL/L (98-107); CREATININE FOR GFR 0.84 MG/DL (0.55-1.30); GLOMERULAR FILTRATION RATE > 60.0 (>45); GLUCOSE, FASTING 92 MG/DL (74-106); POTASSIUM SERUM 3.3 MMOL/L (3.5-5.1); SODIUM LEVEL 146 MMOL/L (136-145)
[2023-10-28] MEDS: MIRALAX *UNIT DOSE* 17GM PACKET PO SCH (10:00)
[2023-10-28] MEDS: POTASSIUM CHLORIDE 10MEQ SR TABLET PO SCH (10:04)
[2023-10-28] MEDS: SENOKOT S TAB PO SCH (10:05)
[2023-10-28 12:00] VITALS: BP 102/48; TEMP 97.5; O2SAT 94
[2023-10-28 19:43] VITALS: BP 129/55; TEMP 98.8; O2SAT 95
[2023-10-29 03:38] VITALS: BP 99/58; TEMP 97.7; O2SAT 93
[2023-10-29 06:06] LABS: HEMOGLOBIN 8.2 g/dl (12.0-15.5); MEAN CORPUSCULAR HEMOGLOBIN 27.2 pg (27.0-33.0); MEAN CORPUSCULAR HGB CONC 31.5 g/dl (32.0-36.5); MEAN CORPUSCULAR VOLUME 86.1 fl (80.0-96.0); PLATELET COUNT, AUTOMATED 190 10^3/uL (150-450); RED BLOOD COUNT 3.02 10^6/uL (4.00-5.40); WHITE BLOOD COUNT 7.7 10^3/uL (4.0-10.0)
[2023-10-29 06:41] LABS: ALBUMIN 1.4 G/DL (3.2-5.2); ALKALINE PHOSPHATASE 79 U/L (46-116); ALT/SGPT 12 U/L (7.0-40); AST/SGOT 14 U/L (<34); BILIRUBIN,TOTAL 0.3 MG/DL (0.3-1.2); BLOOD UREA NITROGEN 14 MG/DL (9-23); CALCIUM LEVEL 7.4 MG/DL (8.3-10.6); CARBON DIOXIDE LEVEL 28 MMOL/L (20-31); CHLORIDE LEVEL 110 MMOL/L (98-107); CREATININE FOR GFR 0.72 MG/DL (0.55-1.30); GLOMERULAR FILTRATION RATE > 60.0 (>45); GLUCOSE, FASTING 94 MG/DL (74-106); POTASSIUM SERUM 3.3 MMOL/L (3.5-5.1); SODIUM LEVEL 142 MMOL/L (136-145); TOTAL PROTEIN 4.8 G/DL (5.7-8.2)
[2023-10-29] MEDS: POTASSIUM CHLORIDE 10MEQ SR TABLET PO SCH (16:27)
[2023-10-29 17:30] VITALS: TEMP 97.9; O2SAT 90
[2023-10-29] MEDS ORDERED: PROHANCE 279.3MG/ML 5ML VIAL As Ordered ONE (18:37)
[2023-10-29] MEDS ORDERED: PROHANCE 279.3MG/ML 15ML VIAL As Ordered ONE (18:38)
[2023-10-29 20:24] VITALS: BP 133/90; TEMP 98.3; O2SAT 92
[2023-10-30 04:00] VITALS: BP 112/55; TEMP 98.6; O2SAT 97
[2023-10-30 06:34] LABS: HEMATOCRIT 27.4 % (36.0-47.0); HEMOGLOBIN 8.7 g/dl (12.0-15.5); MEAN CORPUSCULAR HEMOGLOBIN 27.2 pg (27.0-33.0); MEAN CORPUSCULAR HGB CONC 31.8 g/dl (32.0-36.5); MEAN CORPUSCULAR VOLUME 85.6 fl (80.0-96.0); PLATELET COUNT, AUTOMATED 236 10^3/uL (150-450); WHITE BLOOD COUNT 9.9 10^3/uL (4.0-10.0)
[2023-10-30 07:28] LABS: ALBUMIN 1.4 G/DL (3.2-5.2); ALKALINE PHOSPHATASE 74 U/L (46-116); ALT/SGPT 9 U/L (7.0-40); AST/SGOT 11 U/L (<34); BILIRUBIN,TOTAL 0.4 MG/DL (0.3-1.2); BLOOD UREA NITROGEN 13 MG/DL (9-23); CALCIUM LEVEL 7.3 MG/DL (8.3-10.6); CARBON DIOXIDE LEVEL 25 MMOL/L (20-31); CHLORIDE LEVEL 111 MMOL/L (98-107); CREATININE FOR GFR 0.85 MG/DL (0.55-1.30); GLOMERULAR FILTRATION RATE > 60.0 (>45); GLUCOSE, FASTING 92 MG/DL (74-106); SODIUM LEVEL 143 MMOL/L (136-145)
[2023-10-30] MEDS: ceFAZolin SOD 1 GM in D5W MINI-BAG PLUS 50 ML IV SCH (12:53)
[2023-10-30 13:05] VITALS: BP 119/64; TEMP 98.1; O2SAT 96
[2023-10-30] MEDS: VANCOMYCIN HCL 750 MG, VIAL MATE ADAPTER 1 EACH in D5W 250 ML IV ONE ×2 (13:45→14:57)
[2023-10-30 20:00] VITALS: BP 128/68; TEMP 98.6; O2SAT 98
[2023-10-30] MEDS: VANCOMYCIN HCL 1,000 MG, VIAL MATE ADAPTER 1 EACH in D5W 250 ML IV SCH (21:05)
[2023-10-31 03:29] VITALS: BP 106/51; TEMP 98.1; O2SAT 92
[2023-10-31 07:50] LABS: HEMATOCRIT 26.2 % (36.0-47.0); HEMOGLOBIN 8.2 g/dl (12.0-15.5); MEAN CORPUSCULAR HEMOGLOBIN 26.7 pg (27.0-33.0); MEAN CORPUSCULAR HGB CONC 31.3 g/dl (32.0-36.5); MEAN CORPUSCULAR VOLUME 85.3 fl (80.0-96.0); PLATELET COUNT, AUTOMATED 223 10^3/uL (150-450); RED BLOOD COUNT 3.07 10^6/uL (4.00-5.40); WHITE BLOOD COUNT 7.8 10^3/uL (4.0-10.0)
[2023-10-31 08:12] LABS: ALBUMIN 1.4 G/DL (3.2-5.2); ALKALINE PHOSPHATASE 71 U/L (46-116); ALT/SGPT < 9 U/L (7.0-40); AST/SGOT 10 U/L (<34); BILIRUBIN,TOTAL 0.2 MG/DL (0.3-1.2); BLOOD UREA NITROGEN 12 MG/DL (9-23); CALCIUM LEVEL 7.3 MG/DL (8.3-10.6); CARBON DIOXIDE LEVEL 25 MMOL/L (20-31); CHLORIDE LEVEL 113 MMOL/L (98-107); CREATININE FOR GFR 0.83 MG/DL (0.55-1.30); GLOMERULAR FILTRATION RATE > 60.0 (>45); GLUCOSE, FASTING 104 MG/DL (74-106); POTASSIUM SERUM 3.9 MMOL/L (3.5-5.1); SODIUM LEVEL 143 MMOL/L (136-145); TOTAL PROTEIN 5.1 G/DL (5.7-8.2)
[2023-10-31 12:04] VITALS: BP 104/51; TEMP 98.1; O2SAT 94
[2023-10-31 19:41] VITALS: BP 161/69; TEMP 98.8; O2SAT 97
[2023-11-01 03:33] VITALS: BP 108/50; TEMP 97.7; O2SAT 98
[2023-11-01 07:09] LABS: HEMATOCRIT 28.1 % (36.0-47.0); HEMOGLOBIN 8.9 g/dl (12.0-15.5); MEAN CORPUSCULAR HEMOGLOBIN 27.3 pg (27.0-33.0); MEAN CORPUSCULAR HGB CONC 31.7 g/dl (32.0-36.5); MEAN CORPUSCULAR VOLUME 86.2 fl (80.0-96.0); PLATELET COUNT, AUTOMATED 240 10^3/uL (150-450); RED BLOOD COUNT 3.26 10^6/uL (4.00-5.40); WHITE BLOOD COUNT 9.2 10^3/uL (4.0-10.0)
[2023-11-01 08:22] LABS: ALBUMIN 1.5 G/DL (3.2-5.2); ALKALINE PHOSPHATASE 71 U/L (46-116); ALT/SGPT 9 U/L (7.0-40); AST/SGOT 15 U/L (<34); BILIRUBIN,TOTAL 0.2 MG/DL (0.3-1.2); BLOOD UREA NITROGEN 11 MG/DL (9-23); CALCIUM LEVEL 7.5 MG/DL (8.3-10.6); CARBON DIOXIDE LEVEL 23 MMOL/L (20-31); CHLORIDE LEVEL 112 MMOL/L (98-107); CREATININE FOR GFR 0.76 MG/DL (0.55-1.30); GLOMERULAR FILTRATION RATE > 60.0 (>45); GLUCOSE, FASTING 87 MG/DL (74-106); POTASSIUM SERUM 4.3 MMOL/L (3.5-5.1); SODIUM LEVEL 140 MMOL/L (136-145); TOTAL PROTEIN 5.4 G/DL (5.7-8.2)
[2023-11-01 12:16] VITALS: BP 132/57; TEMP 98.2; O2SAT 94
== END 2023-11-01 13:50 | disposition short-term general hospital (02) | DRG 871 ==
LOC: EDBD 15:13 → M ED 15:13 → M ED INP 17:52 → M ICU 22:45 → M MSPAV 10-26 16:24
PROVIDERS: ADMIT Internal Medicine Pulmonary Disease; ATTEND Internal Medicine
DX: A41.9 Sepsis, unspecified organism (principal); R65.21 Severe sepsis with septic shock; J18.9 Pneumonia, unspecified organism; I21.A1 Myocardial infarction type 2; N17.9 Acute kidney failure, unspecified; N39.0 Urinary tract infection, site not specified; M86.672 Other chronic osteomyelitis, left ankle and foot; L03.115 Cellulitis of right lower limb; E87.20 Acidosis, unspecified; B96.20 Unspecified Escherichia coli [E. coli] as the cause of diseases classified elsewhere; G35 Multiple sclerosis; G89.29 Other chronic pain; I10 Essential (primary) hypertension; K62.3 Rectal prolapse; M19.90 Unspecified osteoarthritis, unspecified site; Z90.49 Acquired absence of other specified parts of digestive tract; Z90.79 Acquired absence of other genital organ(s); Z79.82 Long term (current) use of aspirin; Z79.899 Other long term (current) drug therapy; Z79.2 Long term (current) use of antibiotics; Z88.1 Allergy status to other antibiotic agents; Z88.2 Allergy status to sulfonamides; Z88.8 Allergy status to other drugs, medicaments and biological substances; Z91.030 Bee allergy status; Z11.52 Encounter for screening for COVID-19; Z99.3 Dependence on wheelchair; Z66 Do not resuscitate; E83.42 Hypomagnesemia; R91.8 Other nonspecific abnormal finding of lung field; L89.90 Pressure ulcer of unspecified site, unspecified stage